=== PATIENT | female | born 1955 | race Caucasian/White ===

== ENCOUNTER 2020-11-28 20:07 | Emergency (ER) | payer OTHER ==
[2020-11-28 20:44] LABS: RED BLOOD COUNT 5.42 M/UL (4.00-5.10); WHITE BLOOD COUNT 12.8 K/UL (4.5-11.0)
[2020-11-28 21:08] LABS: BUN/CREATININE RATIO 14 (0-10)
[2020-11-29] MEDS ORDERED: ZOFRAN ODT 4 MG4 MG PO (00:32)
== END 2020-11-29 00:35 | disposition home or self-care (01) ==
LOC: ER1 20:07
PROVIDERS: Physician Assistant
DX: R10.84 Generalized abdominal pain (principal); R19.7 Diarrhea, unspecified; E11.9 Type 2 diabetes mellitus without complications; I10 Essential (primary) hypertension; Z90.49 Acquired absence of other specified parts of digestive tract; Z90.89 Acquired absence of other organs; Z90.710 Acquired absence of both cervix and uterus; Z88.0 Allergy status to penicillin; Z20.822 Contact with and (suspected) exposure to COVID-19
CPT/HCPCS: 0240U; 80053; 81001; 82150; 82550; 82553; 83605; 83690; 83735; 84484; 85025; 85610; 85652; 85730; 86140; 87086; 93005; 96374; 96375; 96376; 99284; J1885; J2270; J2405; Q9967

== ENCOUNTER → 2021-01-21 | Outpatient (CLI) | payer OTHER ==
[~2021-01-21] MED LIST: ZOFRAN ODT 4 MG4 MG PO
== END ==
LOC: HEART 5 07:48
DX: R07.89 Other chest pain (principal)
CPT/HCPCS: 78452; 93306; A9502